=== PATIENT | female | born 1990 | race American Indian/Alaskan Native ===

== ENCOUNTER 2017-01-06 04:05 | Emergency (ER) | payer OTHER ==
[2017-01-06 04:42] VITALS: BP 115/86
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
[2017-01-06] MEDS ORDERED: MOTRIN PO ONE (08:35)
== END 2017-01-06 08:47 | disposition home or self-care (01) ==
LOC: ED 04:05
DX: S09.11XA Strain of muscle and tendon of head, initial encounter (principal); F12.10 Cannabis abuse, uncomplicated; V89.2XXA Person injured in unspecified motor-vehicle accident, traffic, initial encounter; Y93.89 Activity, other specified; Y99.8 Other external cause status; Y92.89 Other specified places as the place of occurrence of the external cause
CPT/HCPCS: 70450; 81025